=== PATIENT | female | born 1970 | race Caucasian/White ===

== ENCOUNTER 2018-04-27 08:33 | Emergency (ER) | END 2018-04-27 13:39 | disposition home or self-care (01) ==

== ENCOUNTER 2019-01-09 19:30 | Emergency (ER) | payer SELFPAY ==
[~2019-01-09] VITALS: Wt 64.9 kg
[2019-01-09 19:50] VITALS: BP 166/83; PULSE 91; RESP 18
[2019-01-09] MEDS ORDERED: BENZ200C68 PO (20:52)
[2019-01-09] MEDS ORDERED: AZIT250T PO (20:52)
[2019-01-09] MEDS ORDERED: PHEN177S43 MT (20:52)
[2019-01-09] MEDS ORDERED: IBUP-1561 PO (20:52)
--- NOTE | 2019-01-10 00:42 | ERD ---
ER Documentation Chief Complaint Chief Complaint L EAR PAIN X'S 4 DAYS HPI 48-year-old female presented to the emergency department complaining of bilateral ear pain and sore throat intermittently for the past 4 days. Symptoms are moderate in severity. Associated symptoms include tactile fevers. She reports productive cough. She tried no medication for relief of symptoms. She denies any other symptoms at this time. ROS All systems reviewed and are negative except as per history of present illness. Medications Home Meds Active Scripts Ibuprofen* (Motrin*) 400 Mg Tab, 400 MG PO Q6, #30 TAB Prov:ALTON DUNN PA-C 01/09/19 Phenol* (Chloraseptic* [place]) 177 Ml [place].pump, 2 SPRAY MT Q2H PRN for SORE THROAT, #1 BOTTLE Prov:ALTON DUNN PA-C 01/09/19 Benzonatate* (Benzonatate*) 200 Mg Capsule, 200 MG PO TID PRN for COUGH, #15 CAP Prov:ALTON DUNN PA-C 01/09/19 Azithromycin* (Zithromax*) 250 Mg Tablet, 250 MG PO .ZPACK DIRECTED, #6 TAB TAKE 500 MG (2 TABS) THE FIRST DAY THEN 250 MG (1 TAB) DAYS 2-5 Prov:ALTON DUNN PA-C 01/09/19 Allergies Allergies: Coded Allergies: Penicillins (Verified Allergy, Severe, "convulsions", 04/27/18) PMhx/Soc History of Surgery: Yes ( X 3) Anesthesia Reaction: No Hx Neurological Disorder: No Hx Respiratory Disorders: No Hx Cardiac Disorders: No (HTN) Hx Psychiatric Problems: No Hx Miscellaneous Medical Probl: Yes (ANEMIA) Hx Alcohol Use: No Hx Substance Use: No Hx Tobacco Use: No Smoking Status: Never smoker FmHx Family History: No diabetes Physical Exam Vitals Vital Signs Date Temp Pulse Resp B/P (MAP) Pulse Ox O2 O2 Flow FiO2 Time Delivery Rate 01/09/19 100.2 91 18 166/83 94 19:50 (110) Physical Exam Const: No acute distress Head: Atraumatic Eyes: Normal Conjunctiva ENT: Normal External Ears, Nose and Mouth. Posterior pharynx is clear. No tonsillar enlargement or exudate. Uvula is midline. Airway is patent. Neck: Full range of motion. No meningismus. Resp: No respiratory distress. Shallow inspiratory effort. Mild bilateral inspiratory rhonchi noted to bilateral upper lung acosta. Cardio: Regular rate and rhythm, no murmurs Skin: No petechiae or rashes Back: No midline or flank tenderness Ext: No cyanosis, or edema Neur: Awake and alert Psych: Normal Mood and Affect Procedures/MDM 48-year-old female presenting to the emergency department with signs and symptoms most consistent with acute bronchitis, with possible bacterial etiology. She will be treated as an outpatient with prescription for azithromycin, phenol, benzonatate, ibuprofen. No evidence of peritonsillar abscess, meningitis, sepsis, or other emergencies. Patient was in agreement with the diagnosis, plan, need for follow-up, return precautions. Patient's blood pressure was elevated (>120/80) but appears stable without evidence of hypertension emergency or urgency. The patient is to follow-up and pursue outpatient monitoring and therapy with their primary care physician within 1 week and return immediately if they have any new, worsening, or concerning symptoms. Departure Diagnosis: Primary Impression: Acute bronchitis Additional Impression: Sore throat Condition: Fair Patient Instructions: Self-Care for Sore Throats, Bronchitis, Antiobiotic Treatment (Adult) [facility] Usted se grant hecho un examen mdico de control que le indica que no est en chandana condicin que requiera tratamiento urgente en el Departamento de Emergencia. Un estudio ms profundo y el tratamiento de ernst condicin pueden esperar sin ningn riesgo hasta que usted sea atendida/o en el consultorio de ernst mdico o chandana clnica. Es responsabilidad suya arreglar chandana monroe para el seguimiento del patricia. MANEJO DE CONDICIONES NO URGENTES EN EL FUTURO 1) Si usted tiene un mdico de atencin primaria: Usted debera llamar a ernst mdico de atencin primaria antes de venir al departamento de emergencia. Despus de las horas de consultorio, ernst doctor o ernst asociado/a est disponible por telfono. El mdico o enfermero de ephraim en el servicio telefnico puede asesorarle por logan medio para atender el problema, o patricia contrario se puede programar chandana monroe. 2) Si usted no tiene un mdico de atencin primaria: Llame al mdico o clnica de referencia que aparece abajo oli las horas de consultorio para hacer chandana monroe para que le vean. CLINICAS: [place] [id number] [phone] [facility] [phone] [facility] [phone] [place] [phone] [place] [phone] [facility]. [phone] [address] Additional Instructions: Llame al doctor MAANA y roberto chandana MONROE PARA DENTRO DE 1-2 HANK[place].Dgale a la secretaria que nosotros le instruimos hacer esta monroe.Avise o llame si ernst condicin se empeora antes de la monroe. Regresa aqui si peor o no mejor. ALTON DUNN PA-C January 10, 2019 00:41
== END 2019-01-09 21:25 | disposition home or self-care (01) ==
LOC: FTE 19:30
DX: J20.9 Acute bronchitis, unspecified (principal); I10 Essential (primary) hypertension; J02.9 Acute pharyngitis, unspecified
CPT/HCPCS: 99283

== ENCOUNTER 2019-06-29 09:56 | Emergency (ER) | payer MEDICAID ==
[~2019-06-29] VITALS: Ht 149.9 cm; Wt 54.5 kg
[~2019-06-29 09:56] MED LIST: AMLO2.5T78 PO; AZIT250T PO; BENZ200C68 PO; IBUP-1561 PO; PHEN177S43 MT
[2019-06-29 10:02] VITALS: Ht 149.9 cm; Wt 54.5 kg
[2019-06-29] MEDS ORDERED: SOD CHLORIDE 0.9% 1,000 ML IV STA (10:59)
[2019-06-29] MEDS ORDERED: MECLIZINE 12.5 MG TAB PO ONE (11:00)
[2019-06-29 15:21] VITALS: BP 179/99; PULSE 80; RESP 18
== END 2019-06-29 15:23 | disposition home or self-care (01) ==
LOC: E/R 09:56
DX: R42 Dizziness and giddiness (principal); I10 Essential (primary) hypertension; R40.2142 Coma scale, eyes open, spontaneous, at arrival to emergency department; R40.2362 Coma scale, best motor response, obeys commands, at arrival to emergency department
CPT/HCPCS: 36415; 80048; 81001; 84484; 85025; 93005; J7030; Z7502; Z7610